=== PATIENT | male | born 1975 | race African-American/Black ===

== ENCOUNTER → 2016-04-16 | Outpatient (CLI) | payer OTHER ==
[2016-04-16 13:54] LABS: CH 29.8; CHCM 32.7; HCT 41.6 % (39.0-53.0); HDW 2.57; HGB 13.1 gm/dL (13.0-17.5); MCH 28.8 pg (25.0-35.0); MCHC 31.5 g/dL (31.0-37.0); MCV 91.5 fL (80.0-100.0); Mean Platelet Volume 7.9; RBC 4.54 m/uL (4.30-5.90); RDW 13.8 % (11.5-15.5); WBC 11.7 k/uL (3.8-10.6)
--- NOTE | 2016-04-16 13:54 | XR ---
EXAMINATION TYPE: XR chest 2V DATE OF EXAM: 04/16/2016 1:44 PM COMPARISON: January 07, 2014 HISTORY: R05 Cough TECHNIQUE: Frontal and lateral views of the chest are obtained. FINDINGS: There is no focal air space opacity, pleural effusion, or pneumothorax seen. The cardiac silhouette size is within normal limits. The osseous structures are intact. IMPRESSION: No acute cardiopulmonary process.
[2016-04-16 14:20] LABS: ALT 61 U/L (21-72); AST 31 U/L (17-59); Alkaline Phosphatase 99 U/L (38-126); Anion Gap 10 mmol/L; Blood Urea Nitrogen 9 mg/dL (9-20); Calcium 9.9 mg/dL (8.4-10.2); Carbon Dioxide 29 mmol/L (22-30); Chloride 105 mmol/L (98-107); Cholesterol 220 mg/dL (<200); Glucose 95 mg/dL (74-99); HDL Cholesterol 57 mg/dL (40-60); Non-African American GFR(MDRD) >60 (>60 ml/min/1.73 sqM); Potassium 3.9 mmol/L (3.5-5.1); Sodium 144 mmol/L (137-145); Total Bilirubin 0.4 mg/dL (0.2-1.3); Total Protein 7.5 g/dL (6.3-8.2); Triglycerides 168 mg/dL (<150)
== END | disposition home or self-care (01) ==
LOC: LABWHC1 13:19
PROVIDERS: ATTEND Internal Medicine
DX: I11.9 Hypertensive heart disease without heart failure (principal); J02.9 Acute pharyngitis, unspecified; N52.9 Male erectile dysfunction, unspecified; R05 Cough
CPT/HCPCS: 36415; 71020; 80053; 80061; 84403; 84439; 84443; 85027

== ENCOUNTER → 2017-07-08 | Outpatient (CLI) | payer OTHER ==
[2017-07-08 11:48] LABS: Appearance,Urine Clear (Clear); Bilirubin,Urine Negative (Negative); Blood,Urine Negative (Negative); Color,Urine Yellow; Glucose,Urine (UA) Negative (Negative); Ketones,Urine Negative (Negative); Leukocyte Esterase,Urine Negative (Negative); Nitrite,Urine Negative (Negative); Protein,Urine Negative (Negative); Specific Gravity,Urine 1.013 (1.001-1.035); Urobilinogen,Urine <2.0 mg/dL (<2.0)
--- NOTE | 2017-07-08 11:58 | XR ---
EXAMINATION TYPE: XR chest 2V DATE OF EXAM: 07/08/2017 COMPARISON: 04/16/2016 HISTORY: 41-year-old male with cough TECHNIQUE: Frontal and lateral views FINDINGS: The cardiomediastinal silhouette, aorta, and pulmonary vasculature are within normal limits. Mild int erstitial prominence is unchanged. Retained BB posterior left lower hemithoracic soft tissues. No con solidation or pleural effusion. IMPRESSION: Chronic changes without acute cardiopulmonary process.
[2017-07-08 12:00] LABS: HCT 42.1 % (39.0-53.0); MCH 29.2 pg (25.0-35.0); MCHC 33.2 g/dL (31.0-37.0); MCV 87.9 fL (80.0-100.0); Mean Platelet Volume 7.5; Platelet Count 259 k/uL (150-450); RBC 4.79 m/uL (4.30-5.90); RDW 13.7 % (11.5-15.5); WBC 11.4 k/uL (3.8-10.6)
[2017-07-08 12:17] LABS: ALT 40 U/L (21-72); AST 23 U/L (17-59); Albumin 4.3 g/dL (3.5-5.0); Alkaline Phosphatase 109 U/L (38-126); Anion Gap 14 mmol/L; Blood Urea Nitrogen 9 mg/dL (9-20); Calcium 10.2 mg/dL (8.4-10.2); Carbon Dioxide 25 mmol/L (22-30); Chloride 104 mmol/L (98-107); Cholesterol 230 mg/dL (<200); Glucose 90 mg/dL (74-99); HDL Cholesterol 51 mg/dL (40-60); LDL Cholesterol,Calculated 138 mg/dL (0-99); Potassium 4.3 mmol/L (3.5-5.1); Sodium 143 mmol/L (137-145); Total Bilirubin 0.2 mg/dL (0.2-1.3); Total Protein 7.6 g/dL (6.3-8.2); Triglycerides 207 mg/dL (<150)
[2017-07-08 12:29] LABS: T4, Free (Free Thyroxine) 0.89 ng/dL (0.78-2.19)
== END | disposition home or self-care (01) ==
LOC: LABWHC1 11:18
PROVIDERS: ATTEND Internal Medicine
DX: Z00.00 Encounter for general adult medical examination without abnormal findings (principal); E78.2 Mixed hyperlipidemia; M19.90 Unspecified osteoarthritis, unspecified site; K25.0 Acute gastric ulcer with hemorrhage; R05 Cough
CPT/HCPCS: 36415; 71046; 80053; 80061; 81003; 82272; 84439; 84443; 85027

== ENCOUNTER 2019-02-19 03:22 | Emergency (ER) | payer OTHER ==
[2019-02-19 03:29] VITALS: RESP 18
[2019-02-19 03:57] LABS: Basophils # (A) 0.1 k/uL (0-0.2); Basophils % (A) 1 %; Eosinophils # (A) 0.2 k/uL (0-0.7); Eosinophils % (A) 2 %; HCT 43.3 % (39.0-53.0); HGB 13.7 gm/dL (13.0-17.5); Lymphocytes # (A) 3.4 k/uL (1.0-4.8); Lymphocytes % (A) 30 %; MCH 28.6 pg (25.0-35.0); MCHC 31.7 g/dL (31.0-37.0); MCV 90.5 fL (80.0-100.0); Mean Platelet Volume 7.6; Monocytes # (A) 0.5 k/uL (0-1.0); Monocytes % (A) 4 %; Neutrophils # (A) 6.7 k/uL (1.3-7.7); Neutrophils % (A) 60 %; Platelet Count 243 k/uL (150-450); RBC 4.78 m/uL (4.30-5.90); RDW 13.2 % (11.5-15.5); WBC 11.2 k/uL (3.8-10.6)
[2019-02-19 04:06] LABS: INR 0.9 (<1.2); Partial Thromboplastin Time 25.5 sec (22.0-30.0); Prothrombin Time 9.7 sec (9.0-12.0)
--- NOTE | 2019-02-19 04:26 | XR ---
EXAM: XR Chest, 2 Views CLINICAL HISTORY: Chest Pain TECHNIQUE: Frontal and lateral views of the chest. COMPARISON: 07/08/2017 FINDINGS: Lungs: Retrocardiac atelectasis and/or infiltrates. Pleural space: Unremarkable. No pneumothorax. Heart: Unremarkable. No cardiomegaly. Mediastinum: Unremarkable. Bones/joints: Unremarkable. Soft tissues: Retained BB is again noted within the posterior left lower hemithoracic soft tissues. IMPRESSION: Retrocardiac atelectasis and/or infiltrates.
[2019-02-19 04:39] LABS: ALT 40 U/L (21-72); AST 28 U/L (17-59); African American GFR (CKD) >90 (>60 ml/min/1.73 sqM); Albumin 4.2 g/dL (3.5-5.0); Alkaline Phosphatase 92 U/L (38-126); Anion Gap 6 mmol/L; Blood Urea Nitrogen 11 mg/dL (9-20); Calcium 9.5 mg/dL (8.4-10.2); Carbon Dioxide 28 mmol/L (22-30); Chloride 105 mmol/L (98-107); Glucose 115 mg/dL (74-99); Magnesium 2.1 mg/dL (1.6-2.3); Potassium 4.2 mmol/L (3.5-5.1); Sodium 139 mmol/L (137-145); Total Bilirubin 0.2 mg/dL (0.2-1.3); Total Protein 7.3 g/dL (6.3-8.2)
--- NOTE | 2019-02-19 04:40 | ED ---
Chest Pain HPI - General Chief Complaint: Chest Pain Stated Complaint: chest pain Time Seen by Provider: 02/19/19 03:30 Source: patient Mode of arrival: ambulatory Limitations: no limitations - History of Present Illness Initial Comments: Earl is a 43-year-old gentleman with no significant past medical history who presents the emergency department today for evaluation of chest pain for 2 weeks duration and recent development of productive cough and subjective fevers and chills. Patient reports he's been experiencing chest pain for approximately 2 weeks, he's been evaluated by his primary care physician advised that he likely has angina. He denies any diaphoresis lightheadedness went episodes of chest pain. He reports chest pain has been relatively constant for 2 weeks. Patient reports over the past 3 days he's developed a more productive cough shortness of breath. - Related Data Previous Rx's Medication Instructions Recorded Amoxic-Pot Clav 875-125Mg 1 tab PO Q12HR #20 tablet 01/19/16 [Augmentin 875-125] Azithromycin [Zithromax Z-pack] 0 mg PO DIRECTED #6 tab 02/19/19 Allergies Allergy/AdvReac Type Severity Reaction Status Date / Time No Known Allergies Allergy Verified 02/19/19 23:41 Review of Systems ROS Statement: Those systems with pertinent positive or pertinent negative responses have been documented in the HPI. ROS Other: All systems not noted in ROS Statement are negative. EKG Findings - EKG Comments: EKG Findings:: EKG was obtained it complaint chest pain, EKG with a rate of 65, rhythm is sinus, normal axis, normal intervals, no acute ST elevations or depressions no evidence of acute ischemia or infarction. Past Medical History Past Medical History: No Reported History Additional Past Medical History / Comment(s): migraines History of Any Multi-Drug Resistant Organisms: None Reported Past Surgical History: No Surgical Hx Reported Past Psychological History: No Psychological Hx Reported Smoking Status: Never smoker Past Alcohol Use History: None Reported Past Drug Use History: Marijuana General Exam - General Exam Comments Initial Comments: Physical Exam GENERAL: Patient is well-developed and well-nourished. Patient is nontoxic and well- hydrated and is in no distress. HENT: Normocephalic, Atraumatic. EYES: PERRL, EOMI PULMONARY: Scant crackles on left CARDIOVASCULAR: There is a regular rate and rhythm without any murmurs gallops or rubs. ABDOMEN: Soft and nontender with normal bowel sounds. SKIN: Skin is clear with no lesions or rashes and otherwise unremarkable. : Deferred NEUROLOGIC: Patient is alert and oriented x3. Moving all extremities spontaneously MUSCULOSKELETAL: Normal extremities with adequate strength and full range of motion. No lower extremity swelling or edema. No calf tenderness. PSYCHIATRIC: Normal psychiatric evaluation. Limitations: no limitations Course Vital Signs 02/19/19 02/19/19 03:25 05:14 Temperature 98.0 F 98 F Pulse Rate 77 65 Respiratory 18 18 Rate Blood Pressure 140/95 131/76 O2 Sat by Pulse 98 97 Oximetry Chest Pain MDM - MDM Patient was seen and evaluated, history is obtained from patient Patient with 2 weeks of chest pain, EKG was nonischemic, chest x-ray reveals likely pneumonia, labs with mild leukocytosis no other significant abnormalities Results were discussed with the patient who is agreeable with plan for discharge home on oral antibiotics, supportive care. Disposition Clinical Impression: Pneumonia Disposition: HOME SELF-CARE Condition: Stable Instructions (If sedation given, give patient instructions): Pneumonia (ED) Prescriptions: Azithromycin [Zithromax Z-pack] 0 mg PO DIRECTED #6 tab Is patient prescribed a controlled substance at d/c from ED?: No Referrals: Hector Ellis Jr, [Primary Care Provider] - 1-2 days
[2019-02-19] MEDS ORDERED: AZITHROMYCIN 500 MG TAB PO STA (05:06)
[2019-02-19 05:15] VITALS: BP 131/76; PULSE 65; TEMP 98
== END 2019-02-19 05:28 | disposition home or self-care (01) ==
LOC: EC 03:22
DX: J18.9 Pneumonia, unspecified organism (principal)
CPT/HCPCS: 36415; 71046; 80053; 83690; 83735; 84484; 85025; 85610; 85730; 93005; 99285

== ENCOUNTER 2019-02-19 23:35 | Emergency (ER) | payer OTHER ==
[2019-02-19 23:42] VITALS: BP 132/88; PULSE 75; RESP 18; TEMP 97.7
[2019-02-19] MEDS ORDERED: SODIUM CHLORIDE 0.9% 1,000 ML IV STA (23:51)
[2019-02-19] MEDS ORDERED: METOCLOPRAMIDE 5 MG/ML 2 ML VIAL IVP STA (23:51)
[2019-02-19] MEDS ORDERED: diphenhydrAMINE 50 MG/ML 1 ML VIAL IVP STA (23:51)
--- NOTE | 2019-02-19 23:54 | ED ---
Headache HPI - General Chief Complaint: Headache Stated Complaint: Nausea/Headache Time Seen by Provider: 02/19/19 23:50 Mode of arrival: ambulatory - History of Present Illness Initial Comments: Earl a 43-year-old gentleman who presents the ER today for evaluation of migraine headache. Patient port he has a history of migraines, he is currently being treated for pneumonia. He states that he's had a headache throughout the day today progressively worsening which prompted him to come to the ER for evaluation. This is not the worse headache of his life, it was not sudden in onset, not associated with fever or any focal neurologic deficits. Headache is similar to previous migraines. - Related Data Previous Rx's Medication Instructions Recorded Amoxic-Pot Clav 875-125Mg 1 tab PO Q12HR #20 tablet 01/19/16 [Augmentin 875-125] Azithromycin [Zithromax Z-pack] 0 mg PO DIRECTED #6 tab 02/19/19 Allergies Allergy/AdvReac Type Severity Reaction Status Date / Time No Known Allergies Allergy Verified 02/19/19 23:41 Review of Systems ROS Statement: Those systems with pertinent positive or pertinent negative responses have been documented in the HPI. ROS Other: All systems not noted in ROS Statement are negative. Past Medical History Past Medical History: No Reported History, Pneumonia Additional Past Medical History / Comment(s): migraines History of Any Multi-Drug Resistant Organisms: None Reported Past Surgical History: No Surgical Hx Reported Past Psychological History: No Psychological Hx Reported Smoking Status: Never smoker Past Alcohol Use History: None Reported Past Drug Use History: Marijuana General Exam - General Exam Comments Initial Comments: Physical Exam GENERAL: Patient is well-developed and well-nourished. Patient is nontoxic and well-hydrated and is in no distress. HENT: Normocephalic, Atraumatic. EYES: PERRL, EOMI PULMONARY: Unlabored respirations. CARDIOVASCULAR: RRR Warm and well perfused extremities ABDOMEN: Non-distended SKIN: No rashes or bruising : Deferred NEUROLOGIC: Alert and oriented Normal speech Normal gait MUSCULOSKELETAL: Moving all extremities with no apparent injury PSYCHIATRIC: No SI/HI Course Vital Signs 02/19/19 23:38 Temperature 97.7 F Pulse Rate 75 Respiratory 18 Rate Blood Pressure 132/88 O2 Sat by Pulse 95 Oximetry Medical Decision Making - Medical Decision Making She was seen and evaluated, is a 43-year-old gentleman currently being treated for pneumonia. Patient's been coughing lately today he has a headache is mildly dehydrated. IV fluids and a migraine cocktail were ordered. Patient was reevaluated after medications reports complete resolution of the headache, patient is feeling much better at this time I feel the patient is stable for discharge home. Disposition Clinical Impression: Headache Disposition: HOME SELF-CARE Condition: Stable Instructions (If sedation given, give patient instructions): Acute Headache (ED) Is patient prescribed a controlled substance at d/c from ED?: No Referrals: Hector Ellis Jr, [Primary Care Provider] - 1-2 days
== END 2019-02-20 01:39 | disposition home or self-care (01) ==
LOC: EC 23:35
DX: R51 Headache (principal); E86.0 Dehydration; J18.9 Pneumonia, unspecified organism; Z86.69 Personal history of other diseases of the nervous system and sense organs
CPT/HCPCS: 96374; 96375; 96361 ×2; 99283; J1200; J2765

== ENCOUNTER → 2019-04-03 | Outpatient (CLI) | payer OTHER ==
--- NOTE | 2019-04-03 12:00 | MR ---
EXAMINATION TYPE: MR brain/cspine wo DATE OF EXAM: 04/03/2019 COMPARISON: NONE HISTORY: 43-year-old male G43.019, M54.2, migraines without aura, cervicalgia. TECHNIQUE: Multiplanar, multisequence images of the brain and brainstem were acquired without IV con trast. Diffusion weighted imaging is performed. Subsequent multiplanar, multisequence images of the c ervical spine without contrast. FINDINGS: BRAIN: No evidence for acute infarction, hemorrhage, mass, mass effect, midline shift, herniation, effacemen t of basal cisterns, or extra-axial fluid collection. The ventricles and sulci are age-appropriate. Major intracranial flow voids are intact. T2/FLAIR weighted sequences show minimal scattered foci of bright white matter change particularly in the deep white matter regions of both cerebral hemispheres. Approximately one focus is present on th e left and 2 foci in the right. There is a partially into sella. Otherwise, midline structures demonstrate normal morphology. The cr aniocervical junction is normal. Mild mucosal thickening ethmoid air cells and right maxillary sinus along with a couple small 7 mm mu cosal retention cyst right maxillary sinus. Globes are intact. CERVICAL SPINE: There is a lobulated 2.1 x 1.4 cm cystic lesion along the median, right paramedian strap musculature just above the level of the thyroid cartilage. Mild hypertrophy of the adenoid tonsils and additional hypertrophy of the lingual tonsils. No craniocervical junction and the body, predental space widening, or prevertebral soft tissue swelli ng. There is preserved alignment of the cervical spine. Mild heterogeneous marrow signal without suspicio us bone marrow placement. Suggestion of a bone island within the spinous process of T1. [id number] multilevel degenerative disc disease with variable disc desiccation. Mild disc space narrowing at C5-C6 and C6-C7. Small posterior disc ossified complexes from C4 through C7 levels. Scattered facet and uncovertebral joint arthropathy. Mild ligamentum flavum thickening lower cervical spine. Normal course, caliber, and signal intensity of the cervical spinal cord. The disc osteophyte complexes as well as ligamentum flavum resultant very mild narrowing of the spina l canal at C5-C6 and C6-C7. No significant spinal canal stenosis. At C2-C3, there is hypertrophic facet arthropathy without significant neural foraminal stenosis. At C3-C4, hypertrophic facet arthropathy, right greater than left with mild right neuroforaminal sten osis. At C4-C5, mild posterior disc osteophyte complex with uncovertebral joint and facet arthropathy eccen tric towards the right. There is mild right neuroforaminal stenosis. At C5-C6, broad-based disc osteophyte complex with uncovertebral joint and facet arthropathy. Changes result in moderate right neuroforaminal stenosis and very mild narrowing of the spinal canal. At C6-C7, broad-based disc osteophyte complex with uncovertebral joint and facet arthropathy. Changes resulting in severe right and moderate to severe left neuroforaminal stenosis with very mild narrowi ng of the spinal canal. At C7-T1, facet arthropathy with mild left neural foraminal stenosis. No spinal canal stenosis. COMBINED IMPRESSION: BRAIN: 1. Trace burden of bright white matter change with one focus on the left and 2 on the right. Findings may relate to very early changes of chronic small vessel ischemic disease versus sequela of chronic migraines. 2. Otherwise, no acute intracranial abnormality seen. 3. Mild chronic ethmoid and right maxillary sinus disease. CERVICAL SPINE: 1. Mild multilevel degenerative disc disease, more mild to moderate in the lower cervical spine. 2. Very mild narrowing of the spinal canal at C5-C6 and C6-C7 secondary to small disc osteophyte comp lexes and mild ligamentum flavum thickening. No significant spinal canal stenosis. 3. Additional hypertrophic facet and uncovertebral joint arthropathy. This results in severe right an d moderate to severe left neuroforaminal stenosis at C6-C7 and moderate on the right at C5-C6. Additi onal variable mild neural foraminal narrowing as outlined above. 4. Incidental 2.1 cm multilocular cystic lesion along the median, right paramedian strap musculature. Differential considerations include a thyroglossal duct and dermoid/epidermoid cyst. Consider ENT re ferral.
== END | disposition home or self-care (01) ==
LOC: RADMRIMAIN 06:16
PROVIDERS: ATTEND Nurse Practitioner Family
DX: G43.019 Migraine without aura, intractable, without status migrainosus (principal); R90.89 Other abnormal findings on diagnostic imaging of central nervous system; M48.02 Spinal stenosis, cervical region; M50.30 Other cervical disc degeneration, unspecified cervical region
CPT/HCPCS: 70551; 72141